=== PATIENT | male | born 1975 | race Caucasian/White ===

== ENCOUNTER 2020-08-05 07:43 | Day surgery (SDC) | payer OTHER, SELFPAY ==
[2020-08-05 07:57] VITALS: BMI 25.8
[2020-08-05 08:06] VITALS: BP 121/82; PULSE 60; RESP 16; TEMP 36.3; O2SAT 98
--- NOTE | 2020-08-05 08:54 | P.CONAN_ITS ---
HPI - Anesthesia Eval Consult details Narrative: 44 year old male patient for EGD [facility] Past Medical History Medical History Anxiety Barretts esophagus GERD (gastroesophageal reflux disease) Family History Family history of problems with anesthesia: No Surgical History Surgical History History of esophagogastroduodenoscopy (EGD) Hx of appendectomy History of Problems with Anesthesia: No Social History Social History Patient Tobacco Use Status: Never used Tobacco Second Hand Smoke Exposure: No Use of substances other than those prescribed or required for medical reasons: No Are you DNR?: No Advance Directives: No Advance Directives Information Provided: Yes Nutrition Risks: No Nutritional Risk Poor oral hygiene: No Meds Allergies Allergy/AdvReac Type Severity Reaction Status Date / Time Penicillins Allergy Unknown Verified 07/29/20 07:52 Active Medications: Current Medications Generic Name Dose Route Start Last Admin Trade Name Anya PRN Reason Stop Dose Admin Lactated Ringer's 1,000 mls @ 100 mls/hr 08/05/20 08:45 Lr IVCONT .Q10H DAYO Home Medications Medication Instructions Recorded Confirmed Last Taken Type Vitamin C 07/29/20 Unknown History elderberry fruit [Elderberry] 200 mg PO DAILY 07/29/20 07/29/20 Unknown History escitalopram oxalate 20 mg PO DAILY 07/29/20 07/29/20 Unknown History multivitamin 1 tab PO DAILY 07/29/20 07/29/20 Unknown History omeprazole 40 mg PO DAILY 07/29/20 07/29/20 Unknown History Exam Exam Date and Time: August 05, 2020 0854 Height,Weight and Vital Signs: Height 5 ft 10 in Weight 81.647 kg Last Vital Signs Temp 97.4 F 08/05/20 08:06 Pulse 60 08/05/20 08:06 Resp 16 08/05/20 08:06 BP 121/82 08/05/20 08:06 Pulse Ox 98 08/05/20 08:06 Airway Mallampati Class: I TM Dist: >3cm Neck ROM: Full Heart: RRR Lungs: CTAB Assessment and Plan Assessment Anesthesia Assessment: Anesthesia Plan Discussed and Chart Reviewed Final Anesthetic Review NPO: Yes ASA Class: II Final Preanesthetic Review: No Changes in Pt Med Stat, Meds/Allgs Chart Reviewed, Consent Obtained/Reviewed and Anes Risks/Benef Reviewed Patient Risk: Low Procedure Risk: Low Assessment/Block/Sedation in SS: Assess/Block/Sedation-SS Anesthetic Plan Anesthetic Plan: MAC: Disposition: Standard PACU
--- NOTE | 2020-08-05 09:02 | MHC.SHP ---
Pre-Procedural Eval Section A Date of Service: 08/05/20 The patient is an INPATIENT: No Changes since office visit: No Cold of Flu in the past 2 weeks, No New Medical Problems, No Changes in Medication and No Patient answered all questions The History & Physical has been completed within 30 days and I have reviewed it.: Yes Section B Chief Complaint: barretts Allergies: Allergies Allergy/AdvReac Type Severity Reaction Status Date / Time Penicillins Allergy Unknown Verified 07/29/20 07:52 Plan I have reviewed the history and physical and performed a pertinent physical examination on my patient. No changes have occurred unless specified.
[2020-08-05] MEDS: Lactated Ringers 1,000 ML 100 ML IVCONT (09:12)
--- NOTE | 2020-08-05 09:36 | PM.OP ---
Brief Operative Note Date of Service: 08/05/20 Pre-op diagnosis: GERD Post-op diagnosis: same (barretts) Procedure: egd Surgeon: Grant Gomez Anesthesia: MAC Estimated blood loss (mL): 5 Pathology: other (esophagus bxs) Condition: stable Disposition: PACU
[2020-08-05 09:39] VITALS: BP 109/60; PULSE 57; RESP 16; TEMP 36.8; O2SAT 95
[2020-08-05 09:54] VITALS: BP 105/65; PULSE 64; RESP 18; O2SAT 97
--- NOTE | 2020-08-05 19:47 | OP_ITS ---
SURGEON: Grant Gomez MD INDICATIONS: Gastroesophageal reflux disease and Alberto esophagus. PREOPERATIVE DIAGNOSIS: POSTOPERATIVE DIAGNOSIS: PROCEDURE PERFORMED: Upper endoscopy with biopsy. ESTIMATED BLOOD LOSS: COMPLICATIONS: ANESTHESIA: Monitored anesthesia care. ASSISTANTS: SPECIMENS: DESCRIPTION OF PROCEDURE: History and physical performed. The risks and benefits of the procedure were explained to the patient. Informed consent was obtained. The patient was placed in the left lateral decubitus position. The Olympus video gastroscope was introduced into the esophagus, stomach, and duodenum. Examination was performed. The scope was removed. He tolerated the procedure well and was taken to recovery area in stable condition. FINDINGS: Esophagus: The esophagus showed Alberto esophagus and distal esophagus without any raised lesions or ulcerated areas. There was no esophagitis. Biopsies were obtained beginning at the EG junction in all 4 quadrants and extending cranially every 2 cm. Stomach: The stomach showed no evidence of masses, ulcers, or polyps. Duodenum: The bulb and second portion were normal. IMPRESSION: Alberto esophagus. RECOMMENDATION: Follow up the biopsy results. MD PRIYANK Duvall/MODL / [id number]
== END 2020-08-05 13:28 | disposition home or self-care (01) ==
PROVIDERS: PCP Physician Assistant; Visit Provider Internal Medicine Gastroenterology
PROC: 0DJ08ZZ Inspection of Upper Intestinal Tract, Via Natural or Artificial Opening Endoscopic (ICD-10-PCS; CPT 43235; principal; 2020-08-05 08:50)
DX: K22.70 Barrett's esophagus without dysplasia (principal); K21.00 Gastro-esophageal reflux disease with esophagitis, without bleeding; K22.2 Esophageal obstruction; F41.9 Anxiety disorder, unspecified; Z79.899 Other long term (current) drug therapy; Z88.0 Allergy status to penicillin; Z79.1 Long term (current) use of non-steroidal anti-inflammatories (NSAID)
CPT/HCPCS: 43239; 88305; J3010

== ENCOUNTER 2022-02-13 06:24 | Day surgery (SDC) | payer OTHER, SELFPAY ==
--- NOTE | 2022-02-09 11:47 | P.CONAN_ITS ---
Documented by User: Eulalia Aolnso NP 02/09/22 11:54 HPI - Anesthesia Eval Consult details Narrative: 46yo M for Upper Endoscopy and Colonoscopy [facility], [facility] Past Medical History Medical History Anxiety Barretts esophagus GERD (gastroesophageal reflux disease) Family History Family history of problems with anesthesia: No Surgical History Surgical History History of esophagogastroduodenoscopy (EGD) Hx of appendectomy History of Problems with Anesthesia: No Social History Social History Patient Tobacco Use Status: Former Tobacco user Quit Date: 1993 Second Hand Smoke Exposure: No Use of substances other than those prescribed or required for medical reasons: No Are you DNR?: No Advance Directives: No Advance Directives Information Provided: Yes Meds Allergies Allergy/AdvReac Type Severity Reaction Status Date / Time Penicillins Allergy Hives Verified 02/13/22 06:34 Home Medications Medication Instructions Recorded Confirmed Last Taken Type Vitamin C 1,000 mg PO DAILY 07/29/20 Unknown History elderberry fruit 200 mg capsule 200 mg PO DAILY 07/29/20 07/29/20 Unknown History escitalopram oxalate 20 mg tablet 20 mg PO DAILY 07/29/20 07/29/20 Unknown History multivitamin 1 tab PO DAILY 07/29/20 07/29/20 Unknown History omeprazole 40 mg capsule,delayed 40 mg PO DAILY 07/29/20 07/29/20 Unknown Histo ry release Exam Exam Date and Time: February 09, 2022 114 Assessment and Plan Assessment Anesthesia Assessment: Chart Reviewed Final Anesthetic Review Family History of Problems with Anesthesia: No History of Problems with Anesthesia: No Documented by User: Emiliano Walker MD 02/13/22 07:29 [facility] Past Medical History Medical History Anxiety Barretts esophagus GERD (gastroesophageal reflux disease) Surgical History Surgical History History of esophagogastroduodenoscopy (EGD) Hx of appendectomy Social History Social History Patient Tobacco Use Status: Former Tobacco user Quit Date: 1993 Second Hand Smoke Exposure: No Use of substances other than those prescribed or required for medical reasons: No Are you DNR?: No Advance Directives: No Advance Directives Information Provided: Yes Meds Allergies Allergy/AdvReac Type Severity Reaction Status Date / Time Penicillins Allergy Hives Verified 02/13/22 06:34 Home Medications Medication Instructions Recorded Confirmed Last Taken Type Vitamin C 1,000 mg PO DAILY 07/29/20 Unknown History elderberry fruit 200 mg capsule 200 mg PO DAILY 07/29/20 07/29/20 Unknown History escitalopram oxalate 20 mg tablet 20 mg PO DAILY 07/29/20 07/29/20 Unknown History multivitamin 1 tab PO DAILY 07/29/20 07/29/20 Unknown History omeprazole 40 mg capsule,delayed 40 mg PO DAILY 07/29/20 07/29/20 Unknown History release Exam Airway Mallampati Class: I TM Dist: >3cm Neck ROM: Full Loose/Missing/Broken Teeth: No Heart: rrr Lungs: clear Assessment and Plan Final Anesthetic Review NPO: Yes ASA Class: II Final Preanesthetic Review: No Changes in Pt Med Stat, Meds/Allgs Chart Reviewed, Consent Obtained/Reviewed and Anes Risks/Benef Reviewed Patient Risk: Low Procedure Risk: Low Anesthetic Plan Anesthetic Plan: MAC: Disposition: Standard PACU
[2022-02-13 06:35] VITALS: BMI 26.5
[2022-02-13 06:39] VITALS: BP 118/78; PULSE 72; RESP 15; TEMP 36.4; O2SAT 97
[2022-02-13] MEDS: Lactated Ringers 1,000 ML 100 ML IVCONT (06:51)
--- NOTE | 2022-02-13 07:28 | MHC.SHP ---
Pre-Procedural Eval Section A Date of Service: 02/13/22 Section B Chief Complaint: Alberto's esophagus without dysplasia,screening Details of Present Illness: see H*P no changes Relevant Family History (Specify if Yes): No Relevant Social History: None Present Medications: see Short Stay Collaborative assessment Medical History: No relevant PMH History of Previous Operations: No relevant previous surgery Allergies: Allergies Allergy/AdvReac Type Severity Reaction Status Date / Time Penicillins Allergy Hives Verified 02/13/22 06:34 Review of Systems Sugical H&P ROS: Negative: Constitution, Cardiovascular, Respiratory, Neurological, Psychiatric, Hem-Onc, Allergic/Immunologic, Gastrointestinal, Genitourinary, Musculoskeletal, Integumentary, Endocrine and Eyes/Ears/Nose/Throat Exam Surgical H&P Exam: Normal: HEENT, Normal: Heart, Normal: Lungs, Normal: Extremities, Normal: Abdomen, Normal: Skin and Normal: Neurological Plan Diagnosis/Plan: Unchanged I have reviewed the history and physical and performed a pertinent physical examination on my patient. No changes have occurred unless specified. Time Spent With Patient Time: Total time managing care of this patient today ____ minutes.
[2022-02-13 08:25] VITALS: BP 93/64; PULSE 60; RESP 12; TEMP 36.2; O2SAT 94
--- NOTE | 2022-02-13 08:34 | PM.OP ---
Brief Operative Note Date of Service: 02/13/22 Pre-op diagnosis: barretts,screening Post-op diagnosis: same Procedure: egd colonoscopy Surgeon: Grant Gomez Anesthesia: MAC Was an [employer] Consultant used for this Procedure?: No Estimated blood loss (mL): 2 Pathology: other Condition: stable Disposition: PACU
--- NOTE | 2022-02-13 08:36 | OP_ITS ---
SURGEON: Grant Gomez MD INDICATIONS: 1. Alberto's esophagus. 2. Colon cancer screening. PREOPERATIVE DIAGNOSIS: POSTOPERATIVE DIAGNOSIS: PROCEDURE PERFORMED: Upper endoscopy with biopsy, colonoscopy to the terminal ileum with snare polypectomy. ESTIMATED BLOOD LOSS: COMPLICATIONS: ANESTHESIA: Monitored anesthesia care. ASSISTANTS: SPECIMENS: DESCRIPTION OF PROCEDURE: Date:02/13/22. History and physical were performed. The risks and benefits of the procedure were explained to the patient. Informed consent was obtained. The patient was placed in the left lateral decubitus position. The Olympus video gastroscope was introduced into the esophagus, stomach, and duodenum. Examination was performed. The scope was removed. He was repositioned for colonoscopy. A digital rectal exam was performed and was found to be normal. The Olympus pediatric video colonoscope was introduced into the rectum and advanced to the cecum without difficulty. The cecum was identified by transillumination, palpation, and identification of ileocecal valve. Examination was performed. The scope was removed. He tolerated the procedure well and was returned to recovery room in stable condition. FINDINGS: Upper endoscopy: 1. Esophagus: There were changes of Alberto esophagus over the distal half of the esophagus. There were no raised lesions or ulcerated areas. Biopsies were obtained beginning at the EG junction at 38 [address] extending all the way to 30 cm in all 4 quadrants every 2 cm. There was a moderate-sized hiatal hernia. 2. Stomach: The stomach was normal. 3. Duodenum: The bulb and second portion were normal. Colonoscopy: The terminal ileum was normal. The visualized colonic mucosa was within normal limits without evidence of masses or ulcers. A single polyp measuring approximately 7 mm was identified and removed with a snare. This was located at 80 cm from the anal verge. No other polyps were identified. The quality of the prep was good. Retroflexed examination showed some small internal hemorrhoids. IMPRESSION: 1. Alberto esophagus. 2. Colon polyp. RECOMMENDATION: Follow up the biopsy results. MD PRIYANK Duvall/ELVA / [id number] MTDD
[2022-02-13 08:39] VITALS: BP 103/69; PULSE 60; RESP 16; TEMP 36.2; O2SAT 98
== END 2022-02-13 09:00 | disposition home or self-care (01) ==
PROVIDERS: PCP Physician Assistant; Visit Provider Internal Medicine Gastroenterology
PROC: (CPT 45385; principal; 2022-02-13 07:30)
DX: Z12.11 Encounter for screening for malignant neoplasm of colon (principal); K63.5 Polyp of colon; K64.8 Other hemorrhoids; K22.70 Barrett's esophagus without dysplasia; K21.9 Gastro-esophageal reflux disease without esophagitis; K44.9 Diaphragmatic hernia without obstruction or gangrene; F41.1 Generalized anxiety disorder; Z79.899 Other long term (current) drug therapy; Z88.0 Allergy status to penicillin; Z87.891 Personal history of nicotine dependence
CPT/HCPCS: 45385; 43239; 88305